=== PATIENT | male | born 2000 | race Caucasian/White ===

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

== ENCOUNTER 2024-02-18 17:18 | Emergency (ER) | payer MEDICAID ==
[~2024-02-18] VITALS: Ht 177.8 cm; Wt 72.0 kg
[~2024-02-18 17:18] MED LIST changes: +HYDR-4383 PO
[2024-02-18 17:23] VITALS: BP 133/87; PULSE 78; RESP 16; TEMP 98; O2SAT 98
[2024-02-18] MEDS: TETanus/Pertussis (Acell)/Diphther VAC/PF (Tdap-Adult) 0.5ml syringe IMVAC ONE (18:14)
== END 2024-02-18 18:21 | disposition home or self-care (01) ==
LOC: ER 17:19
DX: S41.112A Laceration without foreign body of left upper arm, initial encounter (principal); F12.90 Cannabis use, unspecified, uncomplicated; Z79.899 Other long term (current) drug therapy; W45.8XXA Other foreign body or object entering through skin, initial encounter; Y93.89 Activity, other specified; Y92.89 Other specified places as the place of occurrence of the external cause; Y99.8 Other external cause status
CPT/HCPCS: 12001; 90471; 90715; 99283; A6258; A6449